=== PATIENT | female | born 1995 | race Caucasian/White ===

== ENCOUNTER 2020-11-14 10:54 | Observation (INO) | payer OTHER, SELFPAY ==
[2020-11-14] VITALS (11 sets, daily range): BP systolic 103–126; BP diastolic 55–94; PULSE 67–92; RESP 16–18; TEMP 35.9–37.9; O2SAT 95–100; BMI 25.4
--- NOTE | 2020-11-14 11:29 | ED.VIS.GI ---
HPI <Dr. Ena Mendenhall, DO - Last Filed: 11/14/20 16:46> HPI - GI History of Present Illness Chief Complaint: Abd Pain Informant: patient Narrative Narrative: Patient is a 25-year-old female presenting with abdominal pain. 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 She states that sharp and stabbing. Does not radiate. She started having nausea and vomiting secondary to pain. She states is normal for her to vomit when she is in pain. She states the pain is constant but fluctuates in intensity. She does have a history of reflux and was taken off her PPI about 2 and half weeks ago by her PCP. She was in July she had a similar episode with a thought maybe was her gallbladder. She had an outpatient ultrasound which was negative. That episode lasted for about 5 hours and she never had symptoms again until today. She denies any prior surgeries. She is never had an EGD since she was a child. She did have issues with reflux as a child. Patient took 2 Beano, Tagamet and her oral control this morning. The medications did not help with her symptoms. [facility] <Dr. Ena Mendenhall, DO - Last Filed: 11/14/20 16:46> [facility] Home Medications norgestimate-ethinyl estradiol [Tri Femynor] 1 tab PO DAILY 11/14/20 [History Last Taken 11/14/20] Allergy/AdvReac Type Severity Reaction Status Date / Time tetanus and diphtheria Allergy Other Verified 11/14/20 10:55 toxoids Surgical History (Updated 11/14/20 @ 19:[address] Katya Ma MD) History of eustachian tube dysfunction Social History Smoking Status: Never smoker ROS <Dr. Ena Mendenhall, DO - Last Filed: 11/14/20 16:46> ROS ED Constitutional Constitutional ED: Denies chills, fever(s) or malaise Eyes Eyes: Denies blurry vision or loss of vision ENT ENT ED: Denies rhinorrhea or sore throat Cardiovascular Cardiovascular: Denies chest pain or dizziness Respiratory/Chest Respiratory/Chest: Denies cough or dyspnea Gastrointestinal Gastrointestinal: Reports abdominal pain, nausea and vomiting; Denies constipation or diarrhea Genitourinary Genitourinary ED: Denies dysuria or hematuria Musculoskeletal Musculoskeletal: Denies arthralgias or myalgias Integumentary Denies rash or wounds Neurologic Neurologic: Denies focal weakness or headache(s) Psychiatric Psychiatric: Denies anxiety or behavioral changes EXAM <Dr. Ena Mendenhall, DO - Last Filed: 11/14/20 16:46> Physical Exam Const Vital Signs: 11/14/20 10:55 11/14/20 13:22 11/14/20 15:25 Temperature 96.7 F L Temperature Source Temporal Pulse Rate 92 67 78 Pulse Strength Respiratory Rate 16 16 16 Respiratory Pattern Blood Pressure 126/74 H 105/57 L 106/65 Blood Pressure Mean 91 73 78 Blood Pressure Source Blood Pressure Position Blood Pressure Location Baseline BP Pulse Ox 99 100 98 Oxygen Delivery Method Room Air Room Air Room Air 11/14/20 17:15 11/14/20 19:16 11/14/20 20:50 Temperature 98.8 F 99.4 F H Temperature Source Temporal Temporal Pulse Rate 87 73 91 Pulse Strength Normal (2+) Respiratory Rate 16 18 18 Respiratory Pattern Normal Blood Pressure 103/75 108/66 119/94 H Blood Pressure Mean 84 80 102 Blood Pressure Source Monitor Monitor Blood Pressure Position Supine Supine Blood Pressure Location Right Arm Right Arm Baseline BP 108/66 Pulse Ox 99 99 95 Oxygen Delivery Method Room Air Room Air 11/14/20 21:00 Temperature Temperature Source Pulse Rate 81 Pulse Strength Respiratory Rate 18 Respiratory Pattern Blood Pressure 117/69 Blood Pressure Mean 85 Blood Pressure Source Monitor Blood Pressure Position Supine Blood Pressure Location Right Arm Baseline BP 108/66 Pulse Ox 95 Oxygen Delivery Method Room Air Positive well nourished, well developed, alert and oriented x3 General Appearance ED: well developed HEENT Reports normocephalic and moist mucous membranes normocephalic Mouth ED: Yes moist mucous membranes normal Eyes PERRL and EOMs intact bilaterally General Eye ED: Yes normal appearance of both eyes Pupil: PERRL Neck supple and no JVD Lymph Lymphatic: no lymphadenopathy noted Chest Wall inspection of chest normal and palpation of chest normal Resp normal respiratory effort, normal air movement and clear to auscultation bilaterally Cardio regular rate and regular rhythm Peripheral Pulses: pulses 2+ throughout GI non-distended GI Narrative: No rebound tenderness. Negative Guido sign. Auscultation: hypoactive bowel sounds Palpation: soft and tender RLQ and McBurney's point; Negative for guarding or rigid Back/Spine normal to inspection Extremity normal to inspection and full ROM Neuro oriented x3, moves all extremities and no focal motor deficits Sensorium / Orientation: alert Psych mental status grossly normal and thought process normal Skin no rashes or lesions noted and no petechiae <Dr. Pritesh Richard MD - Last Filed: 11/14/20 21:11> Physical Exam Const Vital Signs: 11/14/20 10:55 11/14/20 13:22 11/14/20 15:25 Temperature 96.7 F L Temperature Source Temporal Pulse Rate 92 67 78 Pulse Strength Respiratory Rate 16 16 16 Respiratory Pattern Blood Pressure 126/74 H 105/57 L 106/65 Blood Pressure Mean 91 73 78 Blood Pressure Source Blood Pressure Position Blood Pressure Location Baseline BP Pulse Ox 99 100 98 Oxygen Delivery Method Room Air Room Air Room Air 11/14/20 17:15 11/14/20 19:16 11/14/20 20:50 Temperature 98.8 F 99.4 F H Temperature Source Temporal Temporal Pulse Rate 87 73 91 Pulse Strength Normal (2+) Respiratory Rate 16 18 18 Respiratory Pattern Normal Blood Pressure 103/75 108/66 119/94 H Blood Pressure Mean 84 80 102 Blood Pressure Source Monitor Monitor Blood Pressure Position Supine Supine Blood Pressure Location Right Arm Right Arm Baseline BP 108/66 Pulse Ox 99 99 95 Oxygen Delivery Method Room Air Room Air 11/14/20 21:00 Temperature Temperature Source Pulse Rate 81 Pulse Strength Respiratory Rate 18 Respiratory Pattern Blood Pressure 117/69 Blood Pressure Mean 85 Blood Pressure Source Monitor Blood Pressure Position Supine Blood Pressure Location Right Arm Baseline BP 108/66 Pulse Ox 95 Oxygen Delivery Method Room Air [facility] <Dr. Ena Mendenhall DO - Last Filed: 11/14/20 16:46> [facility] Narrative Medical decision making narrative: Patient evaluated for 1 day of worsening abdominal pain. She states it is in her right upper quadrant. She has associated nausea and vomiting with it. She really states the vomiting is secondary to pain. Patient is treated with IV Pepcid, fluids, morphine and Zofran. She requires redosing of nausea and pain medication in the ER. On my exam she is actually more tender in the right lower quadrant. I am concerned for acute appendicitis. Patient does have a significant leukocytosis of 22.1. CT with IV contrast shows a normal appendix as well as normal gallbladder. She does have a dominant follicle in the right ovary measuring 1.6 cm. She still having significant pain in her right lower quadrant so I added on pelvic ultrasound with Doppler to rule out torsion and I did also order a right upper quadrant ultrasound of the gallbladder. There is no obvious abnormalities on that however final read is still pending. Discussed with surgery on-call given the fact that she still having significant pain, tender on exam and has a leukocytosis with no obvious source. Discussed with surgery who would like to repeat CT with oral contrast this time. Patient is agreeable this plan of care. She is signed out to oncoming provider pending final urinalysis as well as CT results and discussion with surgery, Dr. Ma. Lab Data Labs: Laboratory Results - last 24 hr 11/14/20 11/14/20 11/14/20 11:15 11:15 11:15 WBC 22.1 H RBC 4.60 Hgb 13.5 Hct 39.8 MCV 86.5 MCH 29.3 MCHC 33.9 RDW Std Deviation 37.3 RDW Coeff of Lydia 11.9 Plt Count 324 MPV 8.8 Immature Gran % (Auto) 0.300 Neut % (Auto) 87.3 H Lymph % (Auto) 7.5 L [place] % (Auto) 4.5 Eos % (Auto) 0.2 Baso % (Auto) 0.2 Absolute Neuts (auto) 19.3 H Absolute Lymphs (auto) 1.65 Nucleated RBC % 0 Sodium 136 Potassium 3.7 Chloride 103 Carbon Dioxide 26.0 Anion Gap 7 BUN 15 Creatinine 0.73 Estim Creat Clear Calc 90.44 Est GFR (MDRD) Af Amer 127 Est GFR (MDRD) Non-Af 105 BUN/Creatinine Ratio 20.6 H Glucose 129 H Calcium 9.2 Total Bilirubin 0.40 Direct Bilirubin 0.16 AST 20 ALT 33 Alkaline Phosphatase 29 L Total Protein 7.2 Albumin 3.6 Globulin 3.6 Lipase 51 L Serum , Qual NEGATIVE Urine Color Urine Clarity Urine pH Ur Specific [place] Urine Protein Urine Glucose (UA) Urine Ketones Urine Occult Blood Urine Nitrite Urine Bilirubin Urine Urobilinogen Ur Leukocyte Esterase Urine RBC Urine WBC Ur Squamous Epith Cells Urine Bacteria Urine Mucus 11/14/20 17:20 WBC RBC Hgb Hct MCV MCH MCHC RDW Std Deviation RDW Coeff of Lydia Plt Count MPV Immature Gran % (Auto) Neut % (Auto) Lymph % (Auto) [place] % (Auto) Eos % (Auto) Baso % (Auto) Absolute Neuts (auto) Absolute Lymphs (auto) Nucleated RBC % Sodium Potassium Chloride Carbon Dioxide Anion Gap BUN Creatinine Estim Creat Clear Calc Est GFR (MDRD) Af Amer Est GFR (MDRD) Non-Af BUN/Creatinine Ratio Glucose Calcium Total Bilirubin Direct Bilirubin AST ALT Alkaline Phosphatase Total Protein Albumin Globulin Lipase Serum , Qual Urine Color Yellow Urine Clarity Clear Urine pH 7.0 Ur Specific [place] 1.010 Urine Protein Negative Urine Glucose (UA) Normal Urine Ketones 15 H Urine Occult Blood Negative Urine Nitrite Negative Urine Bilirubin Negative Urine Urobilinogen Normal Ur Leukocyte Esterase Negative Urine RBC 0 SEEN Urine WBC 0 SEEN Ur Squamous Epith Cells 0-5 SEEN Urine Bacteria RARE Urine Mucus 0 SEEN Radiography Diagnostic Testing: Radiology Impression Abdomen/Pelvis CT 11/14/20 11:57 IMPRESSION: Dominant follicle in the right ovary measuring 1.6 cm. Electronically Signed: Eh Valencia MD at 12:28 EDT , Service support , Abdomen/Pelvis CT 11/14/20 16:05 IMPRESSION: 1. Nonvisualization of the appendix. 2. Otherwise unremarkable/normal abdomen. Electronically Signed: Kala Wild MD at 18:48 EDT Tel , Service support , <Dr. Pritesh Richard MD - Last Filed: 11/14/20 21:11> [facility] Narrative Medical decision making narrative: I took checkout on this patient. The repeat CT returned as below and showed nonvisualization of the appendix. Dr. Ma came and saw the patient prior to my being able to review the results of the CT scan, states that the patient is extremely tender at McBurney's point and is concerned about appendicitis and taken the patient to the operating room, antibiotics ordered. Lab Data Labs: Laboratory Results - last 24 hr 11/14/20 11/14/20 11/14/20 11:15 11:15 11:15 WBC 22.1 H RBC 4.60 Hgb 13.5 Hct 39.8 MCV 86.5 MCH 29.3 MCHC 33.9 RDW Std Deviation 37.3 RDW Coeff of Lydia 11.9 Plt Count 324 MPV 8.8 Immature Gran % (Auto) 0.300 Neut % (Auto) 87.3 H Lymph % (Auto) 7.5 L [place] % (Auto) 4.5 Eos % (Auto) 0.2 Baso % (Auto) 0.2 Absolute Neuts (auto) 19.3 H Absolute Lymphs (auto) 1.65 Nucleated RBC % 0 Sodium 136 Potassium 3.7 Chloride 103 Carbon Dioxide 26.0 Anion Gap 7 BUN 15 Creatinine 0.73 Estim Creat Clear Calc 90.44 Est GFR (MDRD) Af Amer 127 Est GFR (MDRD) Non-Af 105 BUN/Creatinine Ratio 20.6 H Glucose 129 H Calcium 9.2 Total Bilirubin 0.40 Direct Bilirubin 0.16 AST 20 ALT 33 Alkaline Phosphatase 29 L Total Protein 7.2 Albumin 3.6 Globulin 3.6 Lipase 51 L Serum , Qual NEGATIVE Urine Color Urine Clarity Urine pH Ur Specific [place] Urine Protein Urine Glucose (UA) Urine Ketones Urine Occult Blood Urine Nitrite Urine Bilirubin Urine Urobilinogen Ur Leukocyte Esterase Urine RBC Urine WBC Ur Squamous Epith Cells Urine Bacteria Urine Mucus 11/14/20 17:20 WBC RBC Hgb Hct MCV MCH MCHC RDW Std Deviation RDW Coeff of Lydia Plt Count MPV Immature Gran % (Auto) Neut % (Auto) Lymph % (Auto) [place] % (Auto) Eos % (Auto) Baso % (Auto) Absolute Neuts (auto) Absolute Lymphs (auto) Nucleated RBC % Sodium Potassium Chloride Carbon Dioxide Anion Gap BUN Creatinine Estim Creat Clear Calc Est GFR (MDRD) Af Amer Est GFR (MDRD) Non-Af BUN/Creatinine Ratio Glucose Calcium Total Bilirubin Direct Bilirubin AST ALT Alkaline Phosphatase Total Protein Albumin Globulin Lipase Serum , Qual Urine Color Yellow Urine Clarity Clear Urine pH 7.0 Ur Specific [place] 1.010 Urine Protein Negative Urine Glucose (UA) Normal Urine Ketones 15 H Urine Occult Blood Negative Urine Nitrite Negative Urine Bilirubin Negative Urine Urobilinogen Normal Ur Leukocyte Esterase Negative Urine RBC 0 SEEN Urine WBC 0 SEEN Ur Squamous Epith Cells 0-5 SEEN Urine Bacteria RARE Urine Mucus 0 SEEN Radiography Diagnostic Testing: Radiology Impression Abdomen/Pelvis CT 11/14/20 11:57 IMPRESSION: Dominant follicle in the right ovary measuring 1.6 cm. Electronically Signed: Eh Valencia MD at 12:28 EDT , Service support , Abdomen/Pelvis CT 11/14/20 16:05 IMPRESSION: 1. Nonvisualization of the appendix. 2. Otherwise unremarkable/normal abdomen. Electronically Signed: Kala Wild MD at 18:48 EDT Tel , Service support , Discharge Plan Dx/Rx/DC Orders Clinical Impression: Right sided abdominal pain, Nausea & vomiting, Acute appendicitis Disposition Disposition: Acute Care [facility] [place] Discharge Date/Time: 11/14/20 19:54
[2020-11-14 11:33] LABS: Absolute Lymphocyte Count 1.65 X10^3/uL (0.83-4.51); Absolute Neutrophil Count 19.3 X10^3/uL (2.0-7.7); Basophil# 0.05 X10^3/uL; Basophil% 0.2 % (0-1); Eosinophil# 0.04 X10^3/uL; Eosinophils% 0.2 % (0-5); Hematocrit 39.8 % (37-47); Hemoglobin 13.5 g/dL (12.0-15.0); Lymphocyte # 1.65 X10^3/ul (0.83-4.51); Lymphocyte % 7.5 % (19-41); Mean Corp Hgb Conc 33.9 g/dL (32-36); Mean Corpuscular Hgb 29.3 pg (27.0-32.0); Mean Corpuscular Volume 86.5 fL (81-99); Mean Platelet Vol. 8.8 fl (6.2-12.0); Monocyte# 0.99 X10^3/uL; Monocyte% 4.5 % (0-10); NRBC Flagged by Analyzer 0 % (0-5); Neutrophil # 19.26 X10^3/uL (2.7-7.7); Neutrophil % 87.3 % (47-70); Platelet Count 324 K/mm3 (150-450); RBC Distribution Width CV 11.9 % (11.6-14.6); RBC Distribution Width SD 37.3 fl (35.1-43.9); White Blood Count 22.1 K/mm3 (4.4-11.0)
[2020-11-14] MEDS: Ondansetron 4 MG/2 ML Vial IV ×2 (11:40→12:58)
[2020-11-14] MEDS: Morphine 4 MG/ML Syringe IV (11:40)
[2020-11-14 11:48] LABS: AST(SGOT) 20 U/L (15-37); Alanine Aminotransfer ALT/SGPT 33 U/L (13-56); Albumin, Serum 3.6 g/dL (3.2-5.0); Alkaline Phosphatase 29 U/L (45-117); Anion Gap 7 (5-15); BUN 15 mg/dL (7-18); BUN/Creat Ratio 20.6 RATIO (10-20); Bilirubin, Direct 0.16 mg/dL (0.00-0.30); Calcium,Total 9.2 mg/dL (8.5-10.1); Chloride 103 mmol/L (98-107); Creatinine, Serum 0.73 mg/dL (0.55-1.02); EST Glomerular Filtration Rate 105 mL/min (>60); Est Glom Filt Rate - Afr Amer 127 mL/min (>60); Estimated Creatinine Clearance 90.44 ml/min; Globulin 3.6 g/dL (2.2-4.2); Glucose 129 mg/dL (74-106); Lipase 51 U/L (73-393); Potassium 3.7 mmol/L (3.5-5.1); Protein, Total 7.2 g/dL (6.4-8.2); Sodium Level 136 mmol/L (136-145)
--- NOTE | 2020-11-14 11:57 | CT_ITS ---
STUDY: CT ABDOMEN AND PELVIS WITH CONTRAST REASON FOR EXAM: Female, 25 years old. Right upper quadrant and mid upper abdominal pain with nausea. RADIATION DOSAGE (If Supplied By Facility): CTDIvol = ( 8.99 ) mGy, DLP = ( 373.03 ) mGycm TECHNIQUE: Transaxial images were obtained from the dome of the diaphragm to the symphysis pubis without oral contrast. IV 100mL [id number]-[id number] was administered. Sagittal and coronal images were reconstructed. Individualized dose optimization techniques were used for this CT. COMPARISON: None. FINDINGS: The visualized lung bases are unremarkable. The visualized portions of the heart are within normal limits. Normal liver. Normal gallbladder and extrahepatic biliary system. Normal spleen. Normal pancreas. Normal bilateral adrenal glands. Normal right kidney. Normal left kidney. Normal visualized stomach. Normal small intestine. Normal colon. The appendix is visualized and appears normal. Normal abdominal aorta. Normal inferior vena cava. Normal retroperitoneum. Normal urinary bladder. There is a dominant follicle in the right ovary measuring 1.6 cm. Normal abdominal wall. Normal osseous structures. CT/Abdomen/Pelvis W IV Cont ONLY IMPRESSION: Dominant follicle in the right ovary measuring 1.6 cm. Electronically Signed: Eh Valencia MD at 12:28 EDT , Service support ,
[2020-11-14 12:06] LABS: Internal QC Validated? YES +Cl - CLEAR BKGD; Pregnancy, Serum, hCG Quali. NEGATIVE Negative
[2020-11-14] MEDS: Famotidine 200 MG/20 ML MDV 20 MG in 0.9% Normal Saline (Pres. free 8 ML 300 MG IV (12:18)
--- NOTE | 2020-11-14 12:42 | US_ITS ---
STUDY: ULTRASOUND OF THE FEMALE PELVIS - COMPLETE REASON FOR EXAM: Female, 25 years old. Abd pain, right sided, ru torsion LMP: 10/27/2020. TECHNIQUE: Transabdominal and Transvaginal TECHNICAL QUALITY: Adequate. COMPARISON: None. FINDINGS: The uterus is anteverted and is in a midline position. The uterus measures 6.3 cm x 4.3 cm x 3.3 cm. Normal uterine cervix. The endometrium measures 1.6 mm in thickness, and is . There is no demonstrated endometrial mass. There is no demonstrated myometrial mass. I.U.D. - The patient does not have an I.U.D. The right ovary is visualized. The right ovary measures 3.2 cm x 1.9 cm x 2.5 cm. A dominant follicle is seen in the right ovary. This measures 1.8 cm x 1.4 cm x 1.1 cm. There is no visualized right adnexal mass or complex lesion. There is normal arterial and normal venous vascularity. The left ovary is visualized. The left ovary measures 2.4 cm x 2.1 cm x 1.2 cm. There is no left ovarian cyst or ovarian mass. There is no visualized left adnexal mass or complex lesion. There is normal arterial and normal venous vascularity. There is no fluid in the cul-de-sac. Polycystic ovary disease: No. US/Transvaginal Non- IMPRESSION: Dominant follicle in the right ovary measuring 1.8 cm x 1.4 cm x 1.1 cm. Electronically Signed: Eh Valencia MD at 15:15 EDT , Service support ,
--- NOTE | 2020-11-14 12:43 | US_ITS ---
STUDY: ABDOMINAL ULTRASOUND - RIGHT UPPER QUADRANT REASON FOR VISIT: Female, 25 years old PAIN TECHNIQUE: Ultrasound evaluation of the right upper quadrant was performed with real-time and static bowser-scale imaging. TECHNICAL QUALITY: Adequate. COMPARISON: Comparison is made with prior CT scan of the abdomen and pelvis done earlier today. FINDINGS: Liver: The liver measures 16 cm. There is normal echogenicity of the liver. The bile ducts are within normal limits. There is hepatic color flow. The direction of portal flow is hepatopetal. There is no demonstrated mass lesion. Gallbladder: Normal distended gallbladder. The gallbladder wall measures 3 mm. There is a negative sonographic Guido''s sign. There is no pericholecystic fluid. There are no gallstones. Common Bile Duct (C.B.D.): The common bile duct measures 3 mm. Pancreas: Normal size of the head, body and tail of the pancreas. There is normal echogenicity of the pancreas. There is no demonstrated pancreatic mass or cyst. Right Kidney: Normal size of the right kidney. The right kidney measures 11.8 cm x 5.3 cm x 5.8 cm. Normal renal cortex. The right cortex measures 1.8 cm. There is no demonstrated renal mass or cyst. There is no right hydronephrosis. US/Gallbladder IMPRESSION: Normal right upper quadrant ultrasound examination. Electronically Signed: Eh Valencia MD at 15:13 EDT , Service support ,
[2020-11-14] MEDS: HYDROmorphone 0.5 MG/0.5 ML SYRINGE IV (12:48)
[2020-11-14] MEDS: 0.9% Normal Saline 1,000 ML 150 ML IV (16:00)
--- NOTE | 2020-11-14 16:05 | CT_ITS ---
STUDY: CT ABDOMEN AND PELVIS WITHOUT CONTRAST REASON FOR EXAM: Female, 25 years old. Right-sided abdominal pain and leukocytosis RADIATION DOSAGE (If Supplied By Facility): CTDIvol = ( 6.25 ) mGy, DLP = ( 299.79 ) mGycm TECHNIQUE: Transaxial images were obtained from the dome of the diaphragm to the symphysis pubis without oral contrast, and without intravenous contrast. Sagittal and coronal images were reconstructed. Individualized dose optimization techniques were used for this CT. COMPARISON: 14 Nov 2020 earlier same day FINDINGS: The visualized lung bases are unremarkable. The visualized portions of the heart are within normal limits. Normal liver. Normal gallbladder and extrahepatic biliary system. Normal spleen. Normal pancreas. Normal bilateral adrenal glands. Normal right kidney. Normal left kidney. Intravenously administered contrast is excreted into the renal collecting system which is fully decompressed without hydronephrosis/obstruction. There is no intestinal obstruction. Appendix is not visualized. Normal abdominal aorta. Normal inferior vena cava. Normal retroperitoneum. Normal urinary bladder. Normal abdominal wall. Normal osseous structures. CT/Abdomen/Pelvis without Cont IMPRESSION: 1. Nonvisualization of the appendix. 2. Otherwise unremarkable/normal abdomen. Electronically Signed: Kala Wild MD at 18:48 EDT Tel , Service support ,
[2020-11-14 17:28] LABS: Mucous, Urine 0 SEEN /hpf (<or=2+); Red Blood Cells-Urine 0 SEEN /hpf (0-5); White Blood Cells 0 SEEN /hpf (0-5)
[2020-11-14] MEDS: Metoclopramide 10 MG/2 ML Vial 5 MG IV (17:36)
[2020-11-14 17:37] LABS: Color, Urine Yellow (Yellow); Glucose, Dipstick Normal (Normal); Ketone-Dipstick 15 mg/dl (Negative); Leukocyte Esterase-Dipstick Negative /ul (Negative); Nitrite-Dipstick Negative (Negative); Occult Blood-Urine Negative /ul (Negative); Protein-Dipstick Negative (Negative); Urine Bilirubin Dipstick Negative (Negative); Urine Clarity Clear (Clear); Urine Urobilinogen Normal (Normal)
[2020-11-14 17:45] LABS: Bacteria RARE /hpf (None Seen); Squamous Epithelial Cells - UA 0-5 SEEN /hpf (5-10)
--- NOTE | 2020-11-14 19:07 | PCM.HP.STD ---
HPI - General HPI Narrative SHRADDHA FLORES, is a 25 F who presents for mid abdominal/right upper quadrant abdominal pain which started this morning. Patient has not had anything eat today did have some nausea no vomiting. Patient states about 5 months ago that she had a similar episode only lasted 5 hours. However this has not resolved or gotten any better. Patient's initial CAT scan did say that the appendix was visualized and normal. Patient's white blood count was 22 repeat CAT scan with p.o. contrast showed nonvisualization of the appendix. Patient did have an ultrasound the gallbladder which does not have an official report however there is no gallstones seen gallbladder wall is within normal limits as well as common bile duct and LFTs are normal. PFSH Allergy/AdvReac Type Severity Reaction Status Date / Time tetanus and diphtheria Allergy Other Verified 11/14/20 10:55 toxoids Surgical History (Updated 11/14/20 @ 19:[address] Katya Ma MD) History of eustachian tube dysfunction Social History Smoking Status: Never smoker Vital Signs Vital Signs Vital Signs: 11/14/20 10:55 11/14/20 13:22 11/14/20 15:25 Temperature 96.7 F L Temperature Source Temporal Pulse Rate 92 67 78 Respiratory Rate 16 16 16 Blood Pressure 126/74 H 105/57 L 106/65 Blood Pressure Mean 91 73 78 Pulse Ox 99 100 98 Oxygen Delivery Method Room Air Room Air Room Air 11/14/20 17:15 Temperature Temperature Source Pulse Rate 87 Respiratory Rate 16 Blood Pressure 103/75 Blood Pressure Mean 84 Pulse Ox 99 Oxygen Delivery Method Physical Exam Const alert, oriented x3 and no apparent distress HEENT normocephalic and head/scalp atraumatic Resp normal respiratory effort Cardio regular rate GI soft to palpation; Negative for non-distended Palpation: tender RLQ, Rovsing's sign and other (+rebound); Negative for guarding Extremity no clubbing, cyanosis or edema Neuro CN's II-XII intact bilaterally Psych mental status grossly normal Lab / Micro Data Result Diagrams: 11/14/20 11:15 11/14/20 11:15 Labs: Laboratory Results - last 24 hr 11/14/20 11/14/20 11/14/20 11:15 11:15 11:15 WBC 22.1 H RBC 4.60 Hgb 13.5 Hct 39.8 MCV 86.5 MCH 29.3 MCHC 33.9 RDW Std Deviation 37.3 RDW Coeff of Lydia 11.9 Plt Count 324 MPV 8.8 Immature Gran % (Auto) 0.300 Neut % (Auto) 87.3 H Lymph % (Auto) 7.5 L [place] % (Auto) 4.5 Eos % (Auto) 0.2 Baso % (Auto) 0.2 Absolute Neuts (auto) 19.3 H Absolute Lymphs (auto) 1.65 Nucleated RBC % 0 Sodium 136 Potassium 3.7 Chloride 103 Carbon Dioxide 26.0 Anion Gap 7 BUN 15 Creatinine 0.73 Estim Creat Clear Calc 90.44 Est GFR (MDRD) Af Amer 127 Est GFR (MDRD) Non-Af 105 BUN/Creatinine Ratio 20.6 H Glucose 129 H Calcium 9.2 Total Bilirubin 0.40 Direct Bilirubin 0.16 AST 20 ALT 33 Alkaline Phosphatase 29 L Total Protein 7.2 Albumin 3.6 Globulin 3.6 Lipase 51 L Serum , Qual NEGATIVE Urine Color Urine Clarity Urine pH Ur Specific [place] Urine Protein Urine Glucose (UA) Urine Ketones Urine Occult Blood Urine Nitrite Urine Bilirubin Urine Urobilinogen Ur Leukocyte Esterase Urine RBC Urine WBC Ur Squamous Epith Cells Urine Bacteria Urine Mucus 11/14/20 17:20 WBC RBC Hgb Hct MCV MCH MCHC RDW Std Deviation RDW Coeff of Lydia Plt Count MPV Immature Gran % (Auto) Neut % (Auto) Lymph % (Auto) [place] % (Auto) Eos % (Auto) Baso % (Auto) Absolute Neuts (auto) Absolute Lymphs (auto) Nucleated RBC % Sodium Potassium Chloride Carbon Dioxide Anion Gap BUN Creatinine Estim Creat Clear Calc Est GFR (MDRD) Af Amer Est GFR (MDRD) Non-Af BUN/Creatinine Ratio Glucose Calcium Total Bilirubin Direct Bilirubin AST ALT Alkaline Phosphatase Total Protein Albumin Globulin Lipase Serum , Qual Urine Color Yellow Urine Clarity Clear Urine pH 7.0 Ur Specific [place] 1.010 Urine Protein Negative Urine Glucose (UA) Normal Urine Ketones 15 H Urine Occult Blood Negative Urine Nitrite Negative Urine Bilirubin Negative Urine Urobilinogen Normal Ur Leukocyte Esterase Negative Urine RBC 0 SEEN Urine WBC 0 SEEN Ur Squamous Epith Cells 0-5 SEEN Urine Bacteria RARE Urine Mucus 0 SEEN Radiology Impression Abdomen/Pelvis CT 11/14/20 11:57 IMPRESSION: Dominant follicle in the right ovary measuring 1.6 cm. Electronically Signed: Eh Valencia MD at 12:28 EDT , Service support , Abdomen/Pelvis CT 11/14/20 16:05 IMPRESSION: 1. Nonvisualization of the appendix. 2. Otherwise unremarkable/normal abdomen. Electronically Signed: Kala Wild MD at 18:48 EDT Tel , Service support , Assessment & Plan Assessment/Plan (1) Leukocytosis: (2) Right sided abdominal pain: (3) Nausea & vomiting: PLAN: Discussed with patient that clinically she does present like acute appendicitis with leukocytosis and right lower quadrant pain. CT abdomen pelvis with IV contrast stated that the appendix is visualized and normal however I am unable personally to see the appendix. Repeat CT with p.o. contrast shows nonvisualization of the appendix which again I am not able to see but patient is slender and has some stool in the cecum. Discussed this with the patient and her mother. They are both agreeable to proceed with laparoscopic appendectomy. Discussed that if the appendix appears normal would still plan on removing the appendix. 1. Discussed procedure laparoscopic appendectomy, possible open, possible bowel resection along with the risk but not limited to bleeding, infection/abscess, injury to another organ (small bowel, colon, etc.), adhesion, hernia at incision sites, and anesthesia. Katya Ma M.D. Pager: [phone] [facility] [address] [place] [address], [address] [place] [address] Office: [phone] Procedure Criteria Procedure Type: Elective COVID Risk Discussion: The surgeon/proceduralist and patient have discussed in detail the risk of exposure to and/or potential harm posed by the COVID-19 virus with having a surgery/procedure at this time versus the risk of delaying the surgery/procedure. It is not possible to know either the risk of delaying the surgery or procedure or chance of getting an infection with perfect accuracy, but a joint decision was made between the patient and the surgeon/proceduralist to proceed at this time with the scheduled surgery/procedure as indicated on the consent form.
--- NOTE | 2020-11-14 19:45 | APP_PTH ---
PATIENT: SHRADDHA FLORES LOC: MS3 U#:[id number] AGE/SX: 25/F ROOM: MS312 RE11/14/[address]: Dr. Katya Ma MD : 1995 BED: 1 DIS: 11/15/2020 SPEC #: [id number] RECD: 11/17/20 09:58 STATUS: TIA TINOCO #: [id number] MELINA: 11/14/20 19:[address]: Katya Ma DEPT: SURGICAL PATHOLOGY RECD BY: Bri Shaver ENTERED: 11/17/20 11:11 SP TYPE: APPENDIX OTHR DR: Dr. Gil Zimmer MD Tissues: Appendix, NOS Procedures: Surgery Specimen Level III HEADER OPERATION: Laparoscopic appendectomy PRE-OP DIAGNOSIS: Leukocytosis, right-sided abdominal pain, nausea and vomiting TISSUE SUBMITTED: Appendix MICROSCOPIC DIAGNOSIS Appendix, appendectomy: Acute appendicitis and periappendicitis. SJ:sharmila 11/18/2020 MICROSCOPIC DESCRIPTION Slides are reviewed. GROSS DESCRIPTION Received in fixative is one container labeled with the patient's name and designated appendix. The specimen consists of a C-shaped appendix measuring 5 cm in length and up to 1 cm in diameter. The attached periappendiceal adipose tissue measures up to 0.5 cm in width. The serosa is congested. No obvious perforation is identified. The lumen is filled with turbid fecal material. No fecalith is identified. Compliance Engineer sections are submitted in one cassette. / PAVEL:sharmila 11/17/20 TC:2 CPT: 81208
[2020-11-14] MEDS: Bupiv/Epi 0.25% 30 ML Vial (20:40)
--- NOTE | 2020-11-14 20:46 | OP.PCM_ITS ---
Report of Operation Date of Procedure: 11/14/20 Pre-Operative Diagnosis: Acute appendicitis Post-Operative Diagnosis: Same Surgery/Procedure Performed:: Laparoscopic appendectomy Type of Anesthesia: General/Supplemental Anesthesiologist: Saravanan Hardwick Special Medications: Zosyn 4.5 g IV x1 Specimen's removed: Appendix Estimated Blood Loss (mL): <10 cc Fluids Replaced: Per anesthesia Description of Procedure: Indications: 25-year-old female presented to the ER with new right lower quadrant pain this morning. On workup she was found to have acute appendicitis on CT and a leukocytosis of 22. Patient was started on antibiotics in the ER for acute appendicitis-Zosyn 4.5 g IV x1 Description of the procedure: The patient was placed on operating table in supine position. General anesthesia was induced. A timeout was completed verifying correct patient, procedure, position and special equipment prior to beginning procedure. Abdomen was prepped and draped in usual sterile fashion. Incision was made in the natural skin line curvilinear below the umbilicus with a 15 blade scalpel. The fascia was elevated and incised. Entry into the peritoneum was confirmed visually and no bowel was noted in the vicinity of the incision. The Jacob trocar was placed under direct vision. Abdomen insufflated with a pressure of 12-15 mmHg. Patient tolerated insertion well. The scope was inserted and the abdomen inspected. No injuries from initial trocar placement were noted. Minimal amount of fluid was seen in the right lower quadrant. An direct visualization 2 -5 mm trocars were placed one above the symphysis pubis and below the hairline and one in the left lower quadrant la teral to the rectus muscle. Care is taken to avoid injury to the bladder and inferior epigastric vessels. The table was placed in Trendelenburg position with the right side elevated. The appendix was grasped with atraumatic grasper and elevated. It was noted to be inflamed. A window was developed in the mesoappendix at the point between the base of the appendix and the cecum. An endoscopic 45 mm linear cutting stapler blue load was then used to divide and staple the base of the appendix. Enseal was used to divide the mesoappendix The appendix was withdrawn into the Jacob trocar after being placed endoscopically retrieval bag. Appendix was sent to pathology. The appendiceal stump was then irrigated and hemostasis was assured. Fluid was suctioned no other pathology was identified. Secondary trochars were removed under direct visualization. No bleeding was noted trocar sites. The laparoscope withdrawn and the umbilical trocar removed. The abdomen was allowed to collapse. Local anesthesia of 30 mL of 0.5% Marcaine was used at the incision sites. The umbilical trocar site was closed with the [id number] 0 Vicryl suture. The skin was closed up to clear sutures of 4-0 Monocryl and Steri-Strips. The patient was extubated. The patient tolerated the procedure well and was taken to the postanesthesia care unit in satisfactory condition. Complications None
[2020-11-14] MEDS: Acetaminophen 325 MG Tablet 650 MG PO (22:44)
[2020-11-15 01:48] VITALS: BP 101/51; PULSE 77; RESP 16; TEMP 36.9; O2SAT 97
[2020-11-15 04:23] VITALS: BP 104/58; PULSE 69; RESP 16; TEMP 36.8; O2SAT 98
[2020-11-15] MEDS: Acetaminophen 325 MG Tablet 650 MG PO (04:51)
[2020-11-15] MEDS: Lactated Ringers 1,000 ML 120 ML IV (06:05)
--- NOTE | 2020-11-15 08:00 | PN.SURG_ITS ---
Subjective Subjective: Patient is doing well tolerating diet, pain controlled Objective Data Objective Data Vital Signs: Vital Signs Temp Pulse Resp BP Pulse Ox 98.2 F 69 16 104/58 L 98 11/15/20 04:23 11/15/20 04:23 11/15/20 04:23 11/15/20 04:23 11/15/20 04:23 Oxygen Delivery Method Room Air Weight: 135 lb Body Mass Index (BMI) 25.4 Intake & Output: Intake and Output for Last 24 Hours 11/13/20 11/14/20 11/15/20 23:59 23:59 23:59 Intake Total 1220 / 1720 1000 / 1000 Output Total 1600 / 1600 Balance 1220 / 820 -600 / -600 Lab / Micro Data Result Diagrams: 11/14/20 11:15 11/14/20 11:15 Labs: Laboratory Results - last 24 hr 11/14/20 11/14/20 11/14/20 11:15 11:15 11:15 WBC 22.1 H RBC 4.60 Hgb 13.5 Hct 39.8 MCV 86.5 MCH 29.3 MCHC 33.9 RDW Std Deviation 37.3 RDW Coeff of Lydia 11.9 Plt Count 324 MPV 8.8 Immature Gran % (Auto) 0.300 Neut % (Auto) 87.3 H Lymph % (Auto) 7.5 L [place] % (Auto) 4.5 Eos % (Auto) 0.2 Baso % (Auto) 0.2 Absolute Neuts (auto) 19.3 H Absolute Lymphs (auto) 1.65 Nucleated RBC % 0 Sodium 136 Potassium 3.7 Chloride 103 Carbon Dioxide 26.0 Anion Gap 7 BUN 15 Creatinine 0.73 Estim Creat Clear Calc 90.44 Est GFR (MDRD) Af Amer 127 Est GFR (MDRD) Non-Af 105 BUN/Creatinine Ratio 20.6 H Glucose 129 H Calcium 9.2 Total Bilirubin 0.40 Direct Bilirubin 0.16 AST 20 ALT 33 Alkaline Phosphatase 29 L Total Protein 7.2 Albumin 3.6 Globulin 3.6 Lipase 51 L Serum , Qual NEGATIVE Urine Color Urine Clarity Urine pH Ur Specific [place] Urine Protein Urine Glucose (UA) Urine Ketones Urine Occult Blood Urine Nitrite Urine Bilirubin Urine Urobilinogen Ur Leukocyte Esterase Urine RBC Urine WBC Ur Squamous Epith Cells Urine Bacteria Urine Mucus 11/14/20 17:20 WBC RBC Hgb Hct MCV MCH MCHC RDW Std Deviation RDW Coeff of Lydia Plt Count MPV Immature Gran % (Auto) Neut % (Auto) Lymph % (Auto) [place] % (Auto) Eos % (Auto) Baso % (Auto) Absolute Neuts (auto) Absolute Lymphs (auto) Nucleated RBC % Sodium Potassium Chloride Carbon Dioxide Anion Gap BUN Creatinine Estim Creat Clear Calc Est GFR (MDRD) Af Amer Est GFR (MDRD) Non-Af BUN/Creatinine Ratio Glucose Calcium Total Bilirubin Direct Bilirubin AST ALT Alkaline Phosphatase Total Protein Albumin Globulin Lipase Serum , Qual Urine Color Yellow Urine Clarity Clear Urine pH 7.0 Ur Specific [place] 1.010 Urine Protein Negative Urine Glucose (UA) Normal Urine Ketones 15 H Urine Occult Blood Negative Urine Nitrite Negative Urine Bilirubin Negative Urine Urobilinogen Normal Ur Leukocyte Esterase Negative Urine RBC 0 SEEN Urine WBC 0 SEEN Ur Squamous Epith Cells 0-5 SEEN Urine Bacteria RARE Urine Mucus 0 SEEN Micro: Microbiology 11/14/20 19:20 Nasal Secretion SARS-CoV-2 Antigen (Rapid) - Final Radiography Diagnostic Testing: Radiology Impression Abdomen/Pelvis CT 11/14/20 11:57 IMPRESSION: Dominant follicle in the right ovary measuring 1.6 cm. Electronically Signed: Eh Valencia MD at 12:28 EDT , Service support , Abdomen/Pelvis CT 11/14/20 16:05 IMPRESSION: 1. Nonvisualization of the appendix. 2. Otherwise unremarkable/normal abdomen. Electronically Signed: Kala Wild MD at 18:48 EDT Tel , Service support , Physical Exam Narrative Abdomen: Soft, nondistended, tender near incisions, incision dressed clean dry and intact, no peritoneal signs Assessment & Plan Assessment/Plan (1) S/P laparoscopic appendectomy: PLAN: Patient is doing well tolerating diet and pain controlled. Okay to [place] home. Katya Ma M.D. Pager: [phone] [facility] [address] [place] [address], Outpatient Pavilion, [address] [place] [address] Office: [phone]
--- NOTE | 2020-11-15 08:16 | EX.PCM.DISCH ---
Discharge Instructions Procedure Appendectomy Diet Discharge Diet: Light diet - advance as tolerated Activity Discharge Activity: May not drive while taking narcotic pain medications. May shower in (days): 1 Lifting Restrictions: no lifting >20 lbs x 2 wks, no strenuous exercise for 4 wks Dressing / Incision Call your doctor if your incision/area has: Continuous Slow Oozing, Sudden Increased Bleeding, Increased Pain/ Swelling, Increased Redness, Foul Smelling Discharge and Swelling at the incision site Call your doctor if you observe: Fever of 101 or Higher Remove Dressing in: 2 days Cleanse incision/area with: Soap & Water Additional Dressing/Incision Instructions:: Steri-Strips will fall off in 7 to 10 days, if they do not fall off okay to remove after 10 days. Follow Up Care Please Follow Up With: Katya Ma MD When: Call the office for a follow-up appointment 2 weeks; after 5 PM and on the weekends call [phone] with any concerns. Test Results: Test results from this visit will be discussed in further detail at your follow-up appointment, if applicable. Discharge Plan Admission Primary Reason for Your Visit: Acute appendicitis Attending Provider: Katya Ma Primary Care Provider: Gil Zimmer Instructions Forms: Work / School Excuse Additional Instructions / Restrictions: Okay to take ibuprofen 400-600 mg PO q6hr PRN along with the Percocet. Avoid Tylenol since there is already Tylenol in the Percocet. Take all pain meds with food. Percocet can cause constipation recommend taking daily stool softener (i.e. Colace/docusate) while taking the pain meds. Recommend starting some MiraLAX in 1 to 2 days if no bowel movement. If still no bowel movement the following day recommend taking magnesium citrate half the bottle and waiting 4-6 hours if still no results take the other half the bottle. Discharge Orders/Prescriptions Prescriptions: New oxycodone-acetaminophen [Percocet] 5-325 mg tablet 1 - 2 tab PO Q6H PRN (Reason: pain) 3 Days Qty: 10 RF: 0 pantoprazole 40 mg tablet,delayed release (DR/EC) 40 mg PO DAILY Qty: 30 RF: 3 Continued norgestimate-ethinyl estradiol [Tri Femynor] 0.18/0.215/0.25 mg-35 mcg (28) tablet 1 tab PO DAILY RF: 0 Referrals / Follow Up: Gil Zimmer MD [Primary Care Provider] - Disposition Disposition (needs filled in before D/C Order can be placed): Home, self care
[2020-11-15 09:38] VITALS: BP 112/69; PULSE 105; RESP 18; TEMP 37.6; O2SAT 98
[2020-11-15 09:40] VITALS: PULSE 104
== END 2020-11-15 15:15 | disposition home or self-care (01) ==
LOC: ED 13:01 → SDC 19:30 → MS3 19:55
PROVIDERS: Admitting Provider Surgery; Emergency Provider Emergency Medicine; PCP Internal Medicine; Visit Provider Surgery
PROC: 0DTJ4ZZ Resection of Appendix, Percutaneous Endoscopic Approach (ICD-10-PCS; CPT 44970; principal; 2020-11-14 19:45)
DX: K35.80 Unspecified acute appendicitis (principal)
CPT/HCPCS: 44970; 74176; 74177; 76705; 76830; 80048; 80076; 81001; 83690; 84703; 85025; 87426; 88304; 96361; 96365; 96375; 96376; 99218; 99251; 99282; J7030; J7120; Q9967; A4216; C1760; G0378; G0463; J2405; J3490

== ENCOUNTER 2021-08-31 20:52 | Emergency (ER) | payer OTHER, SELFPAY ==
[2021-08-31 20:53] VITALS: BP 149/94; PULSE 104; RESP 16; TEMP 36.7; O2SAT 100; BMI 26.4
--- NOTE | 2021-08-31 21:00 | ED.RN ---
PER SGT SHAFFER, DRUG TESTING NOT NEEDED. IF SHE NEEDS DRUG TESTED SHE CAN GO TO [facility] TOMORROW
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
[2021-08-31 21:52] VITALS: BP 126/78; PULSE 68; RESP 14; TEMP 36.9; O2SAT 98
== END 2021-08-31 21:54 | disposition home or self-care (01) ==
PROVIDERS: Emergency Provider Emergency Medicine; PCP Internal Medicine; Visit Provider Emergency Medicine
DX: S63.91XA Sprain of unspecified part of right wrist and hand, initial encounter (principal); S60.221A Contusion of right hand, initial encounter; X58.XXXA Exposure to other specified factors, initial encounter; Y93.89 Activity, other specified; K21.9 Gastro-esophageal reflux disease without esophagitis; Z79.899 Other long term (current) drug therapy
CPT/HCPCS: 73130; 99282